=== PATIENT | male | born 1980 | race Caucasian/White ===

== ENCOUNTER 2016-12-29 05:46 | Emergency (ER) | payer BC ==
--- NOTE | ~2016-12-29 | CT4 ---
[facility] A Service of [facility] RADIOLOGY TEXT RESULTS PATIENT: GERRY JANE LOCATION: [facility] : [birth year] UNIT #: [id number] AGE: [address]: Mj Rosario MD SEX: M ORDER DR: [id number] [facility] [address] [place], [place] [address] [id number] E MR#: [id number] Acc #: [id number] NAME: GERRY JANE : 1980 SEX: M STUDY DATE/TIME: 12/29/2016 6:41 UNIT: [facility] ROOM: STUDY DESCRIPTION: CT Abd and Pelv Wo Cont Attending Physician: Mj Rosario M.D. Ordering Physician: Mj Rosario M.D. Primary Care Physician: No Primary Care Physician MEDICAL IMAGING REPORT This report is preliminary unless electronic signature is present EXAM CT abdomen and pelvis, 12/29. INDICATION Lower to mid back pain that started yesterday morning. Left flank pain, left lower quadrant pain, and nausea as well. Pain currently rates 10/10. TECHNIQUE Axial noncontrast images were obtained through the abdomen and pelvis. Multiplanar reformats were obtained. This CT exam was performed with one or more of the following radiation dose reduction techniques: automatic exposure control, adjustment of mA and/or kV according to patient size, and iterative reconstruction. COMPARISON No comparison. FINDINGS ABDOMEN: Lung bases are clear. Gallbladder is normal. There is a 3 mm nonobstructing stone in the lower pole of the left kidney. No ureteral stones are seen. No hydronephrosis. The unenhanced solid organs are grossly normal. No free fluid is seen. The unopacified GI tract is normal. PELVIS: The appendix is normal. The remainder of the unopacified GI tract is normal, as well. The bladder is normal. There are no lower ureteral stones. IMPRESSION 1. Small nonobstructing stone in the left kidney. No ureteral stones on either side and no hydronephrosis. 2. Normal unopacified GI tract including the appendix. [facility] A Service of [facility] RADIOLOGY TEXT RESULTS PATIENT: GERRY JANE LOCATION: [facility] : 82 UNIT #: [id number] AGE: [address]: Mj Rosario MD SEX: M ORDER DR: 3. No acute findings in the abdomen or pelvis. Dictated by... Hay Weiss Jr., M.D. THIS IS AN ELECTRONICALLY VERIFIED REPORT Hay Weiss Jr., M.D. at 12/29/2016 3:49 PM SIMEON/winter TD: 12/29/2016 14:32 JOB #: [id number] MEDICAL IMAGING REPORT Page 1 of 1 COPY
[2016-12-29 06:29] LABS: BASOPHIL# 0.1 X10e3 (0-0.3); BASOPHIL% 1.2 % (0-2.5); EOSINOPHIL# 0.1 X10e3 (0-0.7); EOSINOPHIL% 1.4 % (0.0-7.0); HEMATOCRIT 40.1 % (38.0-50.0); HEMOGLOBIN 13.7 gm/dL (13.0-16.0); LYMPHOCYTE# 1.7 X10e3 (1.0-3.5); LYMPHOCYTE% 32.6 % (17.0-45.0); MEAN CELL VOLUME 88.9 FL (83-96); MEAN CORPUSCULAR HEMOGLOBIN 30.4 PG (28-34); MEAN CORPUSCULAR HGB CONC 34.2 g/dL (30-36); MEAN PLATELET VOLUME 9.4 FL (6.5-11.5); MONOCYTE# 0.4 X10e3 (0-1.0); MONOCYTE% 6.9 % (3.0-12.0); NEUTROPHIL# 3.1 X10e3 (1.5-7.1); NEUTROPHIL% 57.9 % (40-75); PLATELET COUNT 152 X10e3 (140-420); RED BLOOD COUNT 4.51 X10e (3.90-5.60); RED CELL DISTRIBUTION WIDTH 12.4 % (11.0-15.5); WHITE BLOOD COUNT 5.3 X10e3 (4.0-10.5)
[2016-12-29 06:33] LABS: DIFF IND NO
[2016-12-29 06:53] LABS: ALBUMIN SERUM 4.3 g/dL (3.5-5.0); BILIRUBIN, DIRECT 0.1 mg/dL (0.0-0.2); BILIRUBIN,INDIRECT 0.6 mg/dL (0.0-0.9); BILIRUBIN,TOTAL 0.7 mg/dL (0.2-2.0); BUN/CREATININE RATIO 16.66; CREATININE SERUM 1.2 mg/dL (0.6-1.4); GLOM FILT RATE Estimated 77.9 mL/min (>60); POTASSIUM 3.1 mmol/L (3.5-5.1)
[2016-12-29 09:04] LABS: URINE SOURCE CLEAN CATCH
[2016-12-29 09:10] LABS: URINE APPEARANCE CLEAR; URINE BILIRUBIN NEG (NEG); URINE BLOOD NEG (NEG); URINE COLOR YELLOW; URINE GLUCOSE NEG (NEG); URINE KETONE NEG (NEG); URINE LEUKOCYTE ESTERASE NEG (NEG); URINE NITRATE NEG (NEG); URINE PH 5.5 (5-8); URINE PROTEIN NEG (NEG); URINE SPECIFIC GRAVITY 1.017 (1.003-1.035); URINE UROBILINOGEN 0.2 MG/DL (NEG)
[2016-12-29 09:13] LABS: CULTURE INDICATED? NO
== END 2016-12-29 09:43 | disposition home or self-care (01) ==
LOC: CED 05:46
PROVIDERS: Emergency Medicine
DX: R10.9 Unspecified abdominal pain (principal); M54.5 Low back pain
CPT/HCPCS: 36415; 74176; 80048; 80076; 81003; 85025; 96361; 96374; 96375; 99284; J1885; J2405